=== PATIENT | female | born 1960 | race Caucasian/White ===

== ENCOUNTER 2016-06-04 14:52 | Emergency (ER) | payer SELFPAY ==
[~2016-06-04] VITALS: Ht 167.6 cm; Wt 104.3 kg
[~2016-06-04 14:52] MED LIST: BACT2OIN TOP; FIORTAB4 PO; GABA250S PO; LAMI1SPR3 TOP; LORA-474 PO; TRAM50TA PO
[2016-06-04 15:10] VITALS: BP 124/84; PULSE 88; RESP 16; TEMP 99; O2SAT 98
[2016-06-04] MEDS ORDERED: NAPR275T18 PO (15:23)
--- NOTE | 2016-06-04 15:40 | PD ---
HPI Chief Complaint: Cold / Flu Symptoms Time Seen by Provider: 15:37 Travel History International Travel<30 days: No Contact w/Intl Traveler<30days: No Traveled to known affect area: No History of Present Illness HPI Patient is a 55-year-old female with a history of asthma and COPD presenting with cough for 2 days. She states that cough is dry and she has some associated wheezing but denies dyspnea and chest pain. No sputum production. She states she's had a somewhat sore throat from coughing only, denies difficulty swallowing or breathing through the airway. She has had left here pain and some nasal congestion and rhinorrhea that is yellow. She denies fever , chills, nausea, vomiting and lymphadenopathy. She did not receive influenza vaccine. No attempts at palliation. She denies current . [facility] Past Medical History Asthma: Yes Anxiety: Yes Depression: Yes COPD: Yes Diminished Hearing: No Musculoskeletal: Yes (CHRONIC BACK PAIN) Reproductive: Yes ("fibroid on ovary") Respiratory: Yes (asthma) Migraines: Yes Influenza Vaccination: No ?: Not LMP: 3 months ago, irregular pre menapause Tubal Ligation: Yes Past Surgical History Thoracic Surgery: Yes (right lumpectomy) Social History Alcohol Use: No Tobacco Use: Yes (ONE PPD) Substance Use: No Allergies-Medications (Allergen,Severity, Reaction): Coded Allergies: Betadine (Verified Allergy, Severe, SWELLING, 06/04/16) Ceclor (Verified Allergy, Severe, RASH, 06/04/16) Codeine (Verified Allergy, Severe, RASH, 06/04/16) Iodine (Verified Allergy, Severe, SWELLING, 06/04/16) Sulfa (Verified Allergy, Severe, RASH, 06/04/16) Reported Meds & Prescriptions Reported Meds & Active Scripts Active Reported Naproxen Sodium 275 Mg Tab 275 Mg PO BID Review of Systems Except as stated in HPI: all other systems reviewed are Neg Physical Exam Narrative GENERAL: Well-developed and well-nourished adult female in no acute distress. SKIN: Warm and dry. Good turgor without tenting. HEAD: Normocephalic and atraumatic. EYES: PERRL bilaterally, 5mm. EOMI bilaterally. No injection or icterus present. No proptosis. Lids without edema or erythema. ENT: Bilateral ear canals are non-edematous/non-erythematous without otorrhea. Bilateral TMs have intact landmarks and without distortion, perforation, air- fluid level or erythema. Nasal mucosa erythematous and edematous with scant yellow discharge, septum intact and midline. Buccal mucosa pink and moist. Oropharynx free of erythema, tonsillar hypertrophy, masses, swelling, asymmetry and exudates. Uvula midline and airway patent. NECK: Supple, no meningeal signs. Trachea midline, no JVD. No cervical or facial lymphadenopathy. CARDIOVASCULAR: Regular rate and rhythm without murmurs, rubs, clicks or gallops. Radial and posterior tibial pulses 2+ bilaterally. No pedal edema. RESPIRATORY: Mild diffuse end expiratory wheezing without rales or rhonchi. No distress or use of accessory muscles. No stridor, tripoding or drooling. GASTROINTESTINAL: Non-tender, non-distended. Normal bowel sounds all 4 quadrants. No masses or organomegaly present. MUSCULOSKELETAL: No gait disturbances. Patient freely moving all four extremities spontaneously. Extremities without clubbing, cyanosis, or edema. No obvious deformities. NEUROLOGIC: CN II-XII grossly intact. Awake and alert. Motor grossly within normal limits. Normal speech. PSYCHIATRIC: Appropriate mood and affect; insight and judgment normal. Data Data Last Documented VS Vital Signs Date Time Temp Pulse Resp B/P Pulse Ox O2 Delivery O2 Flow Rate FiO2 06/04/16 15:10 99.0 88 16 124/84 98 Orders Influenzae A/B Antigen (06/04/16 15:36) Chest, Single Ap (06/04/16 15:36) Methylprednisolone So Succ Inj (Solumedr (06/04/16 15:45) Albuterol-Ipratropium Neb (Duoneb Neb) (06/04/16 15:45) [facility] Medical Decision Making Medical Screen Exam Complete: Yes Emergency Medical Condition: Yes Interpretation(s) Last 24 hours Impressions Chest X-Ray 06/04/16 3076 Signed Impressions: Service Date/Time: Saturday, June 04, 2016 15:47 - CONCLUSION: No acute disease. Elliott Whittaker MD Differential Diagnosis COPD exacerbation versus acute bronchitis versus influenza versus viral syndrome versus pneumonia unlikely Narrative Course Patient is a 55-year-old female with a history of asthma/bronchitis who is a current smoker presenting with cough, wheezing, nasal congestion, ear discomfort and minor sore throat related to coughing for 2 days. She is afebrile and nontoxic-appearing. Oxygen saturation is 98% on room air and there is no tachypnea or increased work of breathing. Patient has mild end- expiratory wheezing on exam without rales. She was given Solu-Medrol and DuoNeb and ordered rapid influenza testing and chest x-ray. After the medications were given patient reports greatly improve her cough improved breathing and less and dyspnea. The auscultation of the lungs reveals no wheezing has resolved. Chest x-ray reveals no evidence of pneumonia or other acute cardiopulmonary process. At this time patient will be treated for acute bronchitis and asthma exacerbation with prednisone, albuterol and Tessalon Perles. Given the length of time symptoms have been present and they are not severe I believe this is viral in etiology and that providing antibiotics would be of greater risk than benefit as the patient if she continues to smoke is at risk for pneumonias in the future and providing antibiotics were not warranted would lead to resistance and inefficacy. I discussed this with the patient who is in agreement and understands. I explained if she develops any fever, chest pain or new or worsening symptoms to return for reevaluation.See discharge paperwork for further instructions. The plan was discussed with the patient who acknowledged their understanding and agreement. Reinforced the follow-up with primary care is critically important. Patient instructed on emergent conditions that should prompt return to ED. Diagnosis Primary Impression: Acute bronchitis Qualified Code: J20.9 - Acute bronchitis, unspecified organism Additional Impression: Asthma exacerbation Patient Instructions: Acute Bronchitis (ED), Cigarette Smoking and Your Health (GEN), General Instructions, How to Stop Smoking (ED) Additional Instructions: Take medication as prescribed OTC Mucinex, cough suppressants, and decongestants as needed OTC Tylenol or Ibuprofen for fever and discomfort Drink lots of fluid to help clear mucous/drainage and stay hydrated Follow up with PCP in 2 days Return to the ED for any acute worsening of symptoms Med/Other Pt SpecificInfo: Prescription(s) given Scripts Benzonatate (Tessalon Perles)100 Mg [id number] Mg PO TID PRN (COUGH) #20 CAP Prov:Marlys Armijo MD 06/04/16 Albuterol 8.5 GM Inh (Proair Hfa 8.5 GM Inh)90 Mcg/Act Aer2 Puff INH Q4-6H PRN ( SHORTNESS OF BREATH) #1 INHALER 108 mcg/actuation Prov:Marlys Armijo MD 06/04/16 Prednisone 20 Mg Tab40 Mg PO DAILY 5 Days Prov:Marlys Armijo MD 06/04/16 Disposition: 01 DISCHARGE HOME Condition: Stable John Perez III Jun 04, 2016 15:40
[2016-06-04] MEDS ORDERED: methylPREDNISolone SOD SUCC 125 MG/2 ML VIAL IM ONE (15:45)
[2016-06-04] MEDS: RESP: ALBUTEROL 2.5 MG/IPRATROPIUM 0.5 MG NEB (SCH) INH ×2 (15:50→15:51)
--- NOTE | 2016-06-04 16:04 | RADHPO ---
EXAM DATE/TIME: 06/04/2016 15:47 [facility] COMPARISON: CHEST PA & LAT, March 24, 2010, 17:19 reports only. INDICATIONS : Cough, fever MEDICAL HISTORY : Chronic obstructive pulmonary disease. SURGICAL HISTORY : None. ENCOUNTER: Initial ACUITY: 2 days PAIN SCORE: 0/10 LOCATION: Bilateral chest FINDINGS: A single view of the chest demonstrates the lungs to be symmetrically aerated without evidence of mas s, infiltrate or effusion. The cardiomediastinal contours are unremarkable. Osseous structures are intact. CONCLUSION: No acute disease. Elliott Whittaker MD on June 04, 2016 at 16:02 Board Certified Radiologist. This report was verified electronically.
[2016-06-04] MEDS ORDERED: PRED20 PO (16:15)
[2016-06-04] MEDS ORDERED: ALBUAER3 INH (16:15)
[2016-06-04] MEDS ORDERED: BENZ100 PO (16:15)
[2016-06-04 16:34] VITALS: BP 141/82
== END 2016-06-04 16:40 | disposition home or self-care (01) ==
LOC: PHEFT 14:52
DX: J44.0 Chronic obstructive pulmonary disease with (acute) lower respiratory infection (principal); J45.901 Unspecified asthma with (acute) exacerbation; G89.29 Other chronic pain; F17.210 Nicotine dependence, cigarettes, uncomplicated
CPT/HCPCS: 71010; 87804; 94640; 94664; 96372; 99283; J2930

== ENCOUNTER 2016-09-18 03:02 | Emergency (ER) | payer SELFPAY ==
[~2016-09-18] VITALS: Ht 167.6 cm; Wt 110.1 kg
[~2016-09-18 03:02] MED LIST changes: +ALBUAER3 INH; -BACT2OIN TOP; +BENZ100 PO; -FIORTAB4 PO; -GABA250S PO; -LAMI1SPR3 TOP; -LORA-474 PO; +NAPR275T18 PO; +PRED20 PO; -TRAM50TA PO
[2016-09-18 03:08] VITALS: BP 136/87; PULSE 90; RESP 16; TEMP 98; O2SAT 98
--- NOTE | 2016-09-18 03:49 | PD ---
HPI Chief Complaint: Edema Time Seen by Provider: 03:37 Travel History International Travel<30 days: No Contact w/Intl Traveler<30days: No Traveled to known affect area: No History of Present Illness HPI The patient is a 56-year-old female that complains of swelling and both feet and burning pain on the medial aspect of the left foot. She denies any history of diabetes and does not abuse alcohol according to her history. She denies any numbness or weakness or burning in any of the other extremities. The patient had burning in her feet several years ago when she had a plantar fasciitis. She has no similar pain for plantar fasciitis now. PFSH Past Medical History Asthma: Yes Anxiety: Yes Depression: Yes COPD: Yes Diminished Hearing: No Musculoskeletal: Yes (CHRONIC BACK PAIN) Reproductive: Yes ("fibroid on ovary") Respiratory: Yes (asthma) Migraines: Yes Influenza Vaccination: No ?: Not LMP: POST MENAPAUSAL : 6 Para: 3 Miscarriage: 3 Tubal Ligation: Yes Past Surgical History Thoracic Surgery: Yes (right lumpectomy) Social History Alcohol Use: Yes (OCC) Tobacco Use: Yes (1 PPD) Substance Use: No Allergies-Medications (Allergen,Severity, Reaction): Coded Allergies: Betadine (Verified Allergy, Severe, SWELLING, 09/18/16) Ceclor (Verified Allergy, Severe, RASH, 09/18/16) Codeine (Verified Allergy, Severe, RASH, 09/18/16) Iodine (Verified Allergy, Severe, SWELLING, 09/18/16) Sulfa (Verified Allergy, Severe, RASH, 09/18/16) Reported Meds & Prescriptions Reported Meds & Active Scripts Active No Active Prescriptions or Reported Medications Review of Systems Except as stated in HPI: all other systems reviewed are Neg Physical Exam Narrative GENERAL: The patient is obese, alert, oriented 3 in slight apparent slight apparent distress with her left medial foot burning sensation. Her vital signs are normal. SKIN: Focused skin assessment warm/dry. HEAD: Atraumatic. Normocephalic. EYES: Pupils equal and round. No scleral icterus. No injection or drainage. ENT: No nasal bleeding or discharge. Mucous membranes pink and moist. NECK: Trachea midline. No JVD. CARDIOVASCULAR: Regular rate and rhythm. No murmur appreciated. RESPIRATORY: No accessory muscle use. Clear to auscultation. Breath sounds equal bilaterally. GASTROINTESTINAL: Abdomen soft, non-tender, nondistended. Hepatic and splenic margins not palpable. MUSCULOSKELETAL: No obvious deformities. No clubbing. No cyanosis. No edema. I cannot see any edema on either foot or leg. There is no tenderness on the plantar fascial area on either foot. NEUROLOGICAL: Awake and alert. No obvious cranial nerve deficits. Motor grossly within normal limits. Normal speech. PSYCHIATRIC: Appropriate mood and affect; insight and judgment normal. Data Data Last Documented VS Vital Signs Date Time Temp Pulse Resp B/P Pulse Ox O2 Delivery O2 Flow Rate FiO2 09/18/16 03:27 90 16 98 09/18/16 03:08 98.0 136/87 Room Air Orders Blood Glucose (09/18/16 03:49) Ice/Cold Pack (09/18/16 03:56) MDM Medical Decision Making Medical Screen Exam Complete: Yes Emergency Medical Condition: Yes Medical Record Reviewed: Yes Interpretation(s) The Accu-Chek is 110. Differential Diagnosis Diabetic neuropathy, alcohol neuropathy, neuropathy etiology undetermined, toxic neuropathy, infectious neuropathy Narrative Course The patient appears to have neuropathy etiology undetermined. Plan: The patient is to elevate her feet above her heart to help the swelling and this may help the neuropathy as well. She is given Motrin to take, 600 mg 3 times daily and an ice pack to put directly where the pain is. The icepack has helped the pain. Diagnosis Primary Impression: Peripheral neuropathy Additional Instructions: Use the ice pack and take the Motrin regularly, 600 mg 3 times daily. Elevate your feet above your heart as much as you can to keep the swelling down and this may help the neuropathy as well. Follow-up with a primary care physician this week. Med/Other Pt SpecificInfo: Prescription(s) given Scripts Ibuprofen 600 Mg [id number] Mg PO TID #44 TAB Ref 0 Prov:John Molina MD 09/18/16 Disposition: 01 DISCHARGE HOME Condition: Stable John Molina MD Sep 18, 2016 03:48
[2016-09-18] MEDS ORDERED: IBUP-232 PO (04:58)
[2016-09-18 05:00] VITALS: BP 130/85; PULSE 75; RESP 16; O2SAT 98
== END 2016-09-18 05:13 | disposition home or self-care (01) ==
LOC: PHED 03:02
DX: G62.9 Polyneuropathy, unspecified (principal); J45.909 Unspecified asthma, uncomplicated; J44.9 Chronic obstructive pulmonary disease, unspecified; F17.210 Nicotine dependence, cigarettes, uncomplicated
CPT/HCPCS: 99283

== ENCOUNTER 2017-01-01 22:30 | Emergency (ER) | payer SELFPAY ==
[~2017-01-01] VITALS: Ht 167.6 cm; Wt 111.0 kg
[~2017-01-01 22:30] MED LIST changes: -ALBUAER3 INH; -BENZ100 PO; +IBUP-232 PO; -NAPR275T18 PO; -PRED20 PO
[2017-01-01 22:33] VITALS: BP 145/83; PULSE 89; RESP 18; TEMP 98.4; O2SAT 97
--- NOTE | 2017-01-01 23:43 | PD ---
HPI Chief Complaint: ENT Complaint Time Seen by Provider: 23:27 Travel History International Travel<30 days: No Contact w/Intl Traveler<30days: No Traveled to known affect area: No History of Present Illness HPI PT C/O EAR ACHE AND DECREASED HEARING DANILO, TRIED TO CLEAN EARS WITH COTTON SWAB BUT FELT LIKE IT GOT WORSE...NOW HER HEARING IS WORSE PFSH Past Medical History Asthma: Yes Anxiety: Yes Depression: Yes COPD: Yes Diminished Hearing: No Musculoskeletal: Yes (CHRONIC BACK PAIN) Reproductive: Yes ("fibroid on ovary") Respiratory: Yes (asthma) Migraines: Yes Tetanus Vaccination: < 5 Years Influenza Vaccination: No ?: Not Menopausal: Yes : 6 Para: 3 Miscarriage: 3 Tubal Ligation: Yes Past Surgical History Thoracic Surgery: Yes (right lumpectomy) Social History Alcohol Use: No Tobacco Use: Yes (3/ PPD ) Substance Use: No Allergies-Medications (Allergen,Severity, Reaction): Coded Allergies: Betadine (Verified Allergy, Severe, SWELLING, 01/01/17) Ceclor (Verified Allergy, Severe, RASH, 01/01/17) Codeine (Verified Allergy, Severe, RASH, 01/01/17) Iodine (Verified Allergy, Severe, SWELLING, 01/01/17) Sulfa (Verified Allergy, Severe, RASH, 01/01/17) Reported Meds & Prescriptions Reported Meds & Active Scripts Active Ibuprofen 600 Mg Tab 600 Mg PO TID Review of Systems Except as stated in HPI: all other systems reviewed are Neg HENT: Positive: Earache Physical Exam Narrative GENERAL: SKIN: Warm and dry. HEAD: Atraumatic. Normocephalic. EYES: Pupils equal and round. No scleral icterus. No injection or drainage. ENT: No nasal bleeding or discharge. Mucous membranes pink and moist. BILATERAL CERUMEN IMPACTION NECK: Trachea midline. No JVD. CARDIOVASCULAR: Regular rate and rhythm. RESPIRATORY: No accessory muscle use. Clear to auscultation. Breath sounds equal bilaterally. GASTROINTESTINAL: Abdomen soft, non-tender, nondistended. Hepatic and splenic margins not palpable. MUSCULOSKELETAL: Extremities without clubbing, cyanosis, or edema. No obvious deformities. NEUROLOGICAL: Awake and alert. No obvious cranial nerve deficits. Motor grossly within normal limits. Five out of 5 muscle strength in the arms and legs. Normal speech. PSYCHIATRIC: Appropriate mood and affect; insight and judgment normal. Data Data Last Documented VS Vital Signs Date Time Temp Pulse Resp B/P Pulse Ox O2 Delivery O2 Flow Rate FiO2 01/02/17 00:35 80 18 140/80 98 Room Air 01/01/17 22:33 98.4 Orders Ear Irrigation (01/01/17 23:43) MDM Medical Decision Making Medical Screen Exam Complete: Yes Emergency Medical Condition: Yes Medical Record Reviewed: Yes Differential Diagnosis oe v om v cerumen impaction Narrative Course PATIENT FOUND TO HAVE DANILO CERUMEN IMPACTION FOR WHICH SHE WILL HAVE PEROXIDE USE AND WARM IRRIGATION TO DISIMPACT Diagnosis Primary Impression: Bilateral hearing loss due to cerumen impaction Patient Instructions: Cerumen Impaction (ED), General Instructions Disposition: 01 DISCHARGE HOME Condition: Stable Mitesh Dobbins MD Jan 01, 2017 23:43
[2017-01-02 00:35] VITALS: BP 140/80; PULSE 80; RESP 18; O2SAT 98
== END 2017-01-02 00:36 | disposition home or self-care (01) ==
LOC: PHED 22:30
DX: H61.23 Impacted cerumen, bilateral (principal); H91.93 Unspecified hearing loss, bilateral; F17.210 Nicotine dependence, cigarettes, uncomplicated
CPT/HCPCS: 99283

== ENCOUNTER 2017-06-28 16:39 | Emergency (ER) | payer SELFPAY ==
[~2017-06-28] VITALS: Ht 167.6 cm; Wt 110.0 kg
[2017-06-28 16:59] VITALS: BP 145/70; PULSE 89; RESP 16; TEMP 99.5; O2SAT 97
--- NOTE | 2017-06-28 17:49 | PD ---
HPI Chief Complaint: Cold / Flu Symptoms Time Seen by Provider: 17:43 Travel History International Travel<30 days: No Contact w/Intl Traveler<30days: No Traveled to known affect area: No History of Present Illness HPI 56-year-old female presents for evaluation. For 2 weeks she has had cough, congestion, chills and myalgias. Cough is occasionally productive of sputum. She reports some posttussive emesis. She reports some urinary incontinence from forceful coughing as well as some loose watery stools. Initially she had a sore throat that resolved. Symptoms have persisted which prompted evaluation today. She has not been using any medications for symptom relief. Denies abdominal pain, dysuria, rash or recent travel. She reports multiple sick contacts at work. No other complaints at this time. PFSH Past Medical History Asthma: Yes Anxiety: Yes Depression: Yes COPD: Yes Diminished Hearing: No Musculoskeletal: Yes (CHRONIC BACK PAIN) Reproductive: Yes ("fibroid on ovary") Respiratory: Yes (asthma) Migraines: Yes Menopausal: Yes : 6 Para: 3 Miscarriage: 3 Tubal Ligation: Yes Past Surgical History Thoracic Surgery: Yes (right lumpectomy) Social History Alcohol Use: No Tobacco Use: Yes (/ PPD ) Substance Use: No Allergies-Medications (Allergen,Severity, Reaction): Coded Allergies: Sulfa (Sulfonamide Antibiotics) (Verified Allergy, Severe, RASH, 06/28/17) cefaclor (Verified Allergy, Severe, RASH, 06/28/17) codeine (Verified Allergy, Severe, RASH, 06/28/17) iodine (Verified Allergy, Severe, SWELLING, 06/28/17) potassium iodide (Verified Allergy, Severe, SWELLING, 06/28/17) povidone-iodine (Verified Allergy, Severe, SWELLING, 06/28/17) sodium iodide (Verified Allergy, Severe, SWELLING, 06/28/17) sodium iodide (Verified Allergy, Severe, SWELLING, 06/28/17) Reported Meds & Prescriptions Reported Meds & Active Scripts Active Azithromycin 250 Mg Tab 250 Mg PO DIRECTED Take 2 tabs (500 mg) on day 1 then 1 tab daily x 4 days. Ibuprofen 600 Mg Tab 600 Mg PO TID Review of Systems Except as stated in HPI: all other systems reviewed are Neg Physical Exam Narrative GENERAL: Well-developed well-nourished female in no acute distress SKIN: Warm and dry. HEAD: Atraumatic. Normocephalic. EYES: Pupils equal and round. No scleral icterus. No injection or drainage. ENT: No nasal bleeding or discharge. Mucous membranes pink and moist. No lymphadenopathy. Neck supple full range of motion. NECK: Trachea midline. No JVD. CARDIOVASCULAR: Regular rate and rhythm. No murmur appreciated. RESPIRATORY: No accessory muscle use. Clear to auscultation. Breath sounds equal bilaterally. No crackles no wheezing or rhonchi GASTROINTESTINAL: Abdomen soft, non-tender, nondistended. Hepatic and splenic margins not palpable. MUSCULOSKELETAL: No obvious deformities. No clubbing. No cyanosis. No edema. NEUROLOGICAL: Awake and alert. No obvious cranial nerve deficits. Motor grossly within normal limits. Normal speech. PSYCHIATRIC: Appropriate mood and affect; insight and judgment normal. Data Data Last Documented VS Vital Signs Date Time Temp Pulse Resp B/P (MAP) Pulse Ox O2 Delivery O2 Flow Rate FiO2 06/28/17 16:59 99.5 89 16 145/70 (95) 97 Orders Orders Influenzae A/B Antigen (06/28/17 17:46) Chest, Single Ap (06/28/17 ) Ed Discharge Order (06/28/17 18:58) MDM Medical Decision Making Medical Screen Exam Complete: Yes Emergency Medical Condition: Yes Medical Record Reviewed: Yes Differential Diagnosis Influenza, pneumonia, bronchitis, sinusitis Narrative Course Chest x-ray and influenza antigen has been ordered. Chest x-ray and influenza antigen tests are negative. Because of the duration of the patient's symptoms she is being discharged with azithromycin. Diagnosis Primary Impression: Acute bronchitis Additional Instructions: Medication as prescribed. Stay well hydrated well-nourished. Return for any emergent medical conditions. Med/Other Pt SpecificInfo: Prescription(s) given Scripts Azithromycin (Azithromycin) 250 Mg Tab 250 MG PO DIRECTED for Infection, #6 TAB 0 Refills Take 2 tabs (500 mg) on day 1 then 1 tab daily x 4 days. Prov: Shannan Adrian DO 06/28/17 Disposition: 01 DISCHARGE HOME Condition: Stable Seamus Armijo Jun 28, 2017 17:48
--- NOTE | 2017-06-28 18:02 | RADRPT ---
EXAM DATE/TIME: 06/28/2017 17:49 [facility] COMPARISON: CHEST SINGLE AP, June 04, 2016, 15:47. INDICATIONS : Cough. MEDICAL HISTORY : Chronic obstructive pulmonary disease. Asthma. SURGICAL HISTORY : Lumpectomy. ENCOUNTER: Initial ACUITY: 1 day PAIN SCORE: 0/10 LOCATION: chest FINDINGS: A single view of the chest demonstrates the lungs to be symmetrically aerated without evidence of mas s, infiltrate or effusion. The cardiomediastinal contours are unremarkable. Osseous structures are intact with mild scoliosis and degenerative change again noted. CONCLUSION: No acute disease. There is no evidence of pneumonia. Josh Medeiros MD on June 28, 2017 at 17:59 Board Certified Radiologist. This report was verified electronically.
[2017-06-28] MEDS ORDERED: AZIT250T3 PO (18:58)
== END 2017-06-28 19:26 | disposition home or self-care (01) ==
LOC: PHEFT 16:39
DX: J44.0 Chronic obstructive pulmonary disease with (acute) lower respiratory infection (principal); J20.9 Acute bronchitis, unspecified; F17.200 Nicotine dependence, unspecified, uncomplicated
CPT/HCPCS: 71045; 87804; 99284